=== PATIENT | female | born 1965 | race Caucasian/White ===

== ENCOUNTER → 2024-06-24 | Day surgery (SDC) | payer MEDICAID ==
[~2024-06-24] VITALS: Ht 157.5 cm; Wt 70.3 kg
[~2024-06-24] MED LIST: ACETAMINOPHEN WITH CODEINE 300/30MG TABLET PO PRN; ATOR40TA70 PO; BUPIVACAINE HCL/PF 0.5% (5MG/ML) 10ML ONE; CEFAZOLIN SODIUM 1000MG/VIAL ONE; CHLO25TA2 PO; FAMOTIDINE 20MG/2ML VIAL IV ONE; FENTANYL CITRATE/PF 50MCG/ML 2ML VIAL ONE; GLYCOPYRROLATE 0.2 MG/ML 2ML VIAL ONE; HYDROMORPHONE HCL/PF 1MG/ML INJ ONE; METOCLOPRAMIDE HCL 10MG/2ML VIAL ONE; MIDAZOLAM HCL 2 MG/2 ML VIAL ONE; NEOSTIGMINE METHYLSULFATE 1MG/ML 10 ML VIAL ONE; ONDANSETRON HCL 4MG/2ML INJ IV PRN; ONDANSETRON HCL 4MG/2ML INJ ONE; PROPOFOL 200MG/20ML VIAL IV ONE; ROCURONIUM BROMIDE 10MG/ML VIAL 5ML IV ONE; SKIN ADHESIVE 0.7 GM EA TOP ONE
[2024-06-24 07:55] LABS: CLARITY URINE CLOUDY (CLEAR); COLOR URINE YELLOW (YELLOW); GLUCOSE URINE NEGATIVE (NEGATIVE); KETONES URINE NEGATIVE (NEGATIVE); LEUKOCYTE ESTERASE URINE 3+ (NEGATIVE); NITRITE URINE NEGATIVE (NEGATIVE); OCCULT BLOOD URINE TRACE (NEGATIVE); PH URINE 7.5 (4.5-8.0); PROTEIN URINE TRACE (NEGATIVE); SPECIFIC GRAVITY URINE 1.019 (1.005-1.030)
[2024-06-24 08:21] LABS: SQUAMOUS EPITHELIAL CELL URINE 3+ /lpf (RARE/1+)
[2024-06-24 08:24] LABS: BACTERIA URINE 2+; MUCUS URINE TRACE /lpf (< = 2+); RBC URINE 0-2 /hpf (0-2)
[2024-06-24] MEDS: SODIUM CHLORIDE 0.9% 1,000 ML IV SCH (09:32)
[2024-06-24 12:31] VITALS: BP 184/84; PULSE 63; RESP 15
[2024-06-24] MEDS: HYDROMORPHONE HCL/PF 1MG/ML INJ IV PRN (12:31)
== END | disposition home or self-care (01) ==
LOC: EDBD 06-03 11:00 → OR 07:20
PROVIDERS: ATTEND Surgery
DX: K80.10 Calculus of gallbladder with chronic cholecystitis without obstruction (principal); E78.5 Hyperlipidemia, unspecified; F41.9 Anxiety disorder, unspecified; Z86.2 Personal history of diseases of the blood and blood-forming organs and certain disorders involving the immune mechanism; Z79.899 Other long term (current) drug therapy; Z98.890 Other specified postprocedural states
CPT/HCPCS: 47562; 81003; 82962; 88304; 93005; J2710; J3010; J0665; J0690; J3490 ×3; J2765; J2250; J2405; J2704; J1171; J7030